=== PATIENT | male | born 1945 | race Hispanic/Latino ===

== ENCOUNTER → 2017-07-24 | Outpatient (CLI) | payer OTHER | END | disposition home or self-care (01) | LOC: OIH 08:05 | PROVIDERS: ATTEND Family Medicine | DX: M47.896 Other spondylosis, lumbar region (principal) | CPT/HCPCS: 72100 ==

== ENCOUNTER → 2019-04-15 | Outpatient (CLI) | payer OTHER | END | disposition home or self-care (01) | LOC: OIH 15:16 | PROVIDERS: ATTEND Family Medicine | DX: M19.011 Primary osteoarthritis, right shoulder (principal) | CPT/HCPCS: 73030 ==

== ENCOUNTER → 2019-09-29 | Outpatient (CLI) | payer OTHER | END | disposition home or self-care (01) | LOC: OIH 10:42 | PROVIDERS: ATTEND Family Medicine | DX: J44.9 Chronic obstructive pulmonary disease, unspecified (principal); M47.814 Spondylosis without myelopathy or radiculopathy, thoracic region; I70.0 Atherosclerosis of aorta | CPT/HCPCS: 71046 ==

== ENCOUNTER 2022-12-03 20:24 | Observation (INO) | payer OTHER ==
[~2022-12-03] VITALS: Ht 167.6 cm; Wt 100.2 kg
[2022-12-03] MEDS ORDERED: 0.9%NACL 1000ML 1,000 ML IV ONE (20:30)
[2022-12-03 20:43] LABS: BASOPHILS # (AUTO) 0.04 K/uL (0.00-0.20); BASOPHILS % (AUTO) 0.5 % (0.0-5.0); EOSINOPHILS # (AUTO) 0.11 K/uL (0.00-0.70); EOSINOPHILS % (AUTO) 1.4 % (0.0-8.0); HEMATOCRIT 36.3 % (42-54); LYMPHOCYTES # (AUTO) 1.7 K/uL (1.0-4.8); LYMPHOCYTES % (AUTO) 21.2 % (21.0-51.0); MEAN CORPUSCULAR HEMOGLOBIN 31.7 pg (27.0-33.0); MEAN CORPUSCULAR HGB CONC 35.5 g/dL (32.0-36.0); MEAN CORPUSCULAR VOLUME 89.2 fL (79-99); MONOCYTES # (AUTO) 0.7 K/uL (0.1-1.0); MONOCYTES % (AUTO) 8.4 % (3.0-13.0); NEUTROPHILS # (AUTO) 5.4 K/uL (1.8-7.7); NEUTROPHILS % (AUTO) 67.3 % (40.0-77.0); PLATELET COUNT (AUTO) 272 K/uL (130-400); RED BLOOD CELL COUNT(AUTO) 4.07 MIL/uL (4.50-6.20); RED CELL DISTRIBUTION WIDTH 12.5 % (11.0-15.5); WHITE BLOOD COUNT (AUTO) 8.1 K/uL (4.8-10.8)
[2022-12-03 20:51] LABS: APPEARANCE,URINE CLEAR (CLEAR); BILIRUBIN,URINE NEGATIVE (NEGATIVE); COLOR,URINE LIGHT-YELLOW (YELLOW); GLUCOSE, URINE (UA) NEGATIVE (NEGATIVE); KETONES,URINE NEGATIVE (NEGATIVE); LEUKOCYTE ESTERASE ,URINE NEGATIVE Leu/uL (NEGATIVE); NITRATE,URINE NEGATIVE (NEGATIVE); OCCULT BLOOD,URINE NEGATIVE (NEGATIVE); PROTEIN,URINE NEGATIVE (NEGATIVE); UROBILINOGEN,URINE 0.2 mg/dL (0.2-1.0)
[2022-12-03 20:53] LABS: CREATININE 1.4 mg/dL (0.5-1.5)
[2022-12-03 20:54] LABS: ADD UA MICROSCOPIC YES
[2022-12-03 20:55] LABS: BACTERIA,URINE RARE /HPF (None Seen); MUCUS,URINE RARE LPF (None Seen); SQUAMOUS EPITHELIAL CELL,UR RARE /HPF (0-2)
[2022-12-03 20:57] LABS: ALBUMIN 3.7 g/dL (3.5-5.0); BILIRUBIN,TOTAL 0.6 mg/dL (0.2-1.0); TOTAL PROTEIN, SERUM 7.2 g/dL (6.0-8.3)
[2022-12-03] MEDS ORDERED: OMEP40CA21 PO (22:27)
[2022-12-03] MEDS ORDERED: ONDA-104 PO (22:27)
[2022-12-03] MEDS ORDERED: IBUP-1493 PO (22:27)
[2022-12-03] MEDS ORDERED: LIDOCAINE 4% ADH..PATCH TP ONE ×2 (22:44→23:00)
[2022-12-04] MEDS ORDERED: CLONIDINE HCL 0.1 MG TABLET PO PRN (01:00)
[2022-12-04] MEDS ORDERED: LACTULOSE 20 GM/30 ML UDCUP PO PRN (01:00)
[2022-12-04] MEDS ORDERED: ACETAMINOPHEN 325 MG TAB PO PRN (01:00)
[2022-12-04] MEDS ORDERED: TEMAZEPAM 15 MG CAPSULE PO PRN (01:00)
[2022-12-04] MEDS ORDERED: LABETALOL 20MG SYG IV PRN (01:00)
[2022-12-04] MEDS ORDERED: HYDRALAZINE 20MG/ML VIAL IV PRN (01:00)
[2022-12-04] MEDS ORDERED: ONDANSETRON 4MG INJ IVP PRN (01:00)
[2022-12-04] MEDS: HYDROCODONE/ACETAMINOPHEN 5/325 MG TAB PO PRN ×2 (01:18→20:17)
[2022-12-04] MEDS: 0.9%NACL 1000ML 1,000 ML IV SCH ×2 (01:32→21:28)
[2022-12-04 06:32] LABS: HEMATOCRIT 35.4 % (42-54); MEAN CORPUSCULAR HEMOGLOBIN 32.2 pg (27.0-33.0); MEAN CORPUSCULAR VOLUME 91.9 fL (79-99); RED BLOOD CELL COUNT(AUTO) 3.85 MIL/uL (4.50-6.20); RED CELL DISTRIBUTION WIDTH 12.7 % (11.0-15.5); WHITE BLOOD COUNT (AUTO) 6.8 K/uL (4.8-10.8)
[2022-12-04 06:51] LABS: CREATININE 1.4 mg/dL (0.5-1.5); MAGNESIUM 1.8 mg/dL (1.80-2.40); PHOSPHORUS 3.7 mg/dL (2.5-4.9); POTASSIUM 4.1 mmol/L (3.5-5.1)
[2022-12-04] MEDS: INSULIN HUMULIN R 100 UNIT/ML 3ML SQ SCH ×4 (07:05→20:21)
[2022-12-04] MEDS: ENOXAPARIN SODIUM 30 MG/0.3 ML SQ SCH ×2 (09:06→20:18)
[2022-12-04] MEDS: FAMOTIDINE 20MG TAB PO SCH (09:06)
[2022-12-04 10:53] VITALS: O2SAT 100
[2022-12-04 11:45] VITALS: BP 141/81; PULSE 88; RESP 16
[2022-12-04 16:00] VITALS: BP 127/75; PULSE 84; RESP 16
[2022-12-04] MEDS ORDERED: HYDR25TA PO (16:18)
[2022-12-04] MEDS ORDERED: LISI20TA24 PO (16:18)
[2022-12-04] MEDS ORDERED: LEVO75 PO (16:18)
[2022-12-04] MEDS ORDERED: ATOR40TA71 PO (16:18)
[2022-12-04] MEDS ORDERED: RIVA20TA PO (16:18)
[2022-12-04] MEDS ORDERED: DILT120C43 PO (16:18)
[2022-12-04] MEDS ORDERED: HYDROCODONE/ACETAMINOPHEN 5/325 MG TAB PO PRN ×2 (16:30)
[2022-12-04] MEDS: GABAPENTIN 100 MG CAPSULE PO SCH ×2 (17:11→20:12)
[2022-12-04 19:00] VITALS: BP 137/83; PULSE 80; RESP 20
[2022-12-05] VITALS: BP 142/73; PULSE 84; RESP 20
[2022-12-05 04:00] VITALS: BP 132/69; PULSE 84; RESP 20
[2022-12-05] MEDS: INSULIN HUMULIN R 100 UNIT/ML 3ML SQ SCH ×2 (05:08→11:30)
[2022-12-05 05:16] LABS: BASOPHILS # (AUTO) 0.04 K/uL (0.00-0.20); BASOPHILS % (AUTO) 0.6 % (0.0-5.0); EOSINOPHILS # (AUTO) 0.11 K/uL (0.00-0.70); EOSINOPHILS % (AUTO) 1.6 % (0.0-8.0); HEMATOCRIT 37.2 % (42-54); IMMATURE GRANULOCYTE ABSOLUTE 0.07 K/uL (0-1); LYMPHOCYTES % (AUTO) 28.3 % (21.0-51.0); MEAN CORPUSCULAR HGB CONC 33.9 g/dL (32.0-36.0); MEAN CORPUSCULAR VOLUME 94.4 fL (79-99); MONOCYTES # (AUTO) 0.7 K/uL (0.1-1.0); MONOCYTES % (AUTO) 9.2 % (3.0-13.0); NEUTROPHILS # (AUTO) 4.2 K/uL (1.8-7.7); NEUTROPHILS % (AUTO) 59.3 % (40.0-77.0); PLATELET COUNT (AUTO) 243 K/uL (130-400); RED BLOOD CELL COUNT(AUTO) 3.94 MIL/uL (4.50-6.20); RED CELL DISTRIBUTION WIDTH 12.6 % (11.0-15.5); WHITE BLOOD COUNT (AUTO) 7.1 K/uL (4.8-10.8)
[2022-12-05] MEDS: HYDROCODONE/ACETAMINOPHEN 5/325 MG TAB PO PRN (05:43)
[2022-12-05 05:58] LABS: CREATININE 1.2 mg/dL (0.5-1.5); POTASSIUM 3.9 mmol/L (3.5-5.1); THYROID STIMULATING HORMONE 3.4 uIU/mL (0.36-3.74)
[2022-12-05] MEDS ORDERED: LEVOTHYROXINE 75 MCG TABLET PO SCH (06:30)
[2022-12-05 08:00] VITALS: BP 120/79; PULSE 89; RESP 18
[2022-12-05] MEDS: FAMOTIDINE 20MG TAB PO SCH (08:53)
[2022-12-05] MEDS: ENOXAPARIN SODIUM 30 MG/0.3 ML SQ SCH ×2 (08:54)
[2022-12-05] MEDS: GABAPENTIN 100 MG CAPSULE PO SCH ×2 (08:56→14:24)
[2022-12-05] MEDS ORDERED: NON-FORMULARY MEDICATION 1 EACH (Omeprazole 40 MG) PO SCH (09:00)
[2022-12-05] MEDS ORDERED: ATORVASTATIN 40 MG TABLET PO SCH (09:00)
[2022-12-05] MEDS ORDERED: DILTIAZEM HCL PO SCH (09:00)
[2022-12-05] MEDS ORDERED: LISINOPRIL 20 MG TABLET PO SCH (09:00)
[2022-12-05] MEDS ORDERED: PANTOPRAZOLE 40 MG TAB DR PO SCH (09:00)
[2022-12-05 11:44] VITALS: BP 147/81; PULSE 84; RESP 18
[2022-12-05] MEDS ORDERED: GABA100C PO (14:21)
[2022-12-05] MEDS ORDERED: PANT40TA PO (14:21)
[2022-12-05] MEDS ORDERED: FAMO20TA8 PO (14:21)
[2022-12-05 16:00] VITALS: BP 132/76
== END 2022-12-05 16:40 | disposition home or self-care (01) ==
LOC: EDH 20:24 → EDHIP 12-04 00:31 → 4CH 12-04 11:45
PROVIDERS: ADMIT Internal Medicine; ATTEND Internal Medicine
DX: R10.32 Left lower quadrant pain (principal); E87.1 Hypo-osmolality and hyponatremia; M16.0 Bilateral primary osteoarthritis of hip; E78.5 Hyperlipidemia, unspecified; I10 Essential (primary) hypertension; M48.54XA Collapsed vertebra, not elsewhere classified, thoracic region, initial encounter for fracture; I48.91 Unspecified atrial fibrillation; J98.11 Atelectasis; I35.1 Nonrheumatic aortic (valve) insufficiency; K80.20 Calculus of gallbladder without cholecystitis without obstruction; I25.10 Atherosclerotic heart disease of native coronary artery without angina pectoris; I48.20 Chronic atrial fibrillation, unspecified; M43.26 Fusion of spine, lumbar region; E66.9 Obesity, unspecified; M85.80 Other specified disorders of bone density and structure, unspecified site; Z68.35 Body mass index [BMI] 35.0-35.9, adult; Z98.1 Arthrodesis status; Z79.01 Long term (current) use of anticoagulants; Z95.5 Presence of coronary angioplasty implant and graft; Z96.652 Presence of left artificial knee joint
CPT/HCPCS: 96360; 96361 ×3; 99285; 82150; 80053; 83880; 83690 ×2; 85025 ×2; 81001; 36415 ×3; 74176; 93005; 96372 ×2; 82550 ×3; 83735; 84100; 83874 ×3; 84484 ×3; 80048 ×2; 85027; 87088; 82948 ×7; 72128; 84145; 84443; 72148; 72146; 97161; 97116; G0378 ×39; J1650 ×3

== ENCOUNTER 2022-12-11 22:28 | Inpatient (IN) | payer OTHER ==
[~2022-12-11] VITALS: Ht 167.6 cm; Wt 101.2 kg
[~2022-12-11 22:28] MED LIST: ATOR40TA71 PO; DILT120C43 PO; FAMO20TA8 PO; GABA100C PO; HYDR25TA PO; IBUP-1493 PO; LEVO75 PO; LISI20TA24 PO; OMEP40CA21 PO; ONDA-104 PO; PANT40TA PO; RIVA20TA PO
[2022-12-11] MEDS ORDERED: LACTATED RINGERS 1000ML 1,000 ML IV ONE (23:00)
[2022-12-11] MEDS ORDERED: ONDANSETRON 4MG INJ IVP ONE (23:00)
[2022-12-11] MEDS ORDERED: MORPHINE 2 MG SYG IVP ONE (23:00)
[2022-12-11] MEDS ORDERED: HALOPERIDOL INJ 5 MG/ML VIAL ONE (23:43)
[2022-12-11] MEDS ORDERED: HALOPERIDOL INJ 5 MG/ML VIAL IV STA (23:44)
[2022-12-12] MEDS ORDERED: HYDROMORPHONE 0.5 MG SYG (0.5MG/0.5ML) IVP ONE (00:30)
[2022-12-12 00:42] LABS: BASOPHILS # (AUTO) 0.03 K/uL (0.00-0.20); BASOPHILS % (AUTO) 0.3 % (0.0-5.0); EOSINOPHILS # (AUTO) 0.04 K/uL (0.00-0.70); EOSINOPHILS % (AUTO) 0.4 % (0.0-8.0); HEMATOCRIT 33.6 % (42-54); IMMATURE GRANULOCYTE ABSOLUTE 0.05 K/uL (0-1); LYMPHOCYTES # (AUTO) 1.2 K/uL (1.0-4.8); LYMPHOCYTES % (AUTO) 13.5 % (21.0-51.0); MEAN CORPUSCULAR HEMOGLOBIN 31.9 pg (27.0-33.0); MEAN CORPUSCULAR HGB CONC 34.2 g/dL (32.0-36.0); MEAN CORPUSCULAR VOLUME 93.1 fL (79-99); MONOCYTES # (AUTO) 0.8 K/uL (0.1-1.0); MONOCYTES % (AUTO) 8.7 % (3.0-13.0); NEUTROPHILS % (AUTO) 76.6 % (40.0-77.0); PLATELET COUNT (AUTO) 232 K/uL (130-400); RED BLOOD CELL COUNT(AUTO) 3.61 MIL/uL (4.50-6.20); RED CELL DISTRIBUTION WIDTH 12.4 % (11.0-15.5); WHITE BLOOD COUNT (AUTO) 9.1 K/uL (4.8-10.8)
[2022-12-12 00:50] LABS: CREATININE 1.3 mg/dL (0.5-1.5); POTASSIUM 3.5 mmol/L (3.5-5.1)
[2022-12-12 00:59] LABS: ALBUMIN 3.3 g/dL (3.5-5.0); BILIRUBIN,TOTAL 0.4 mg/dL (0.2-1.0); TOTAL PROTEIN, SERUM 6.8 g/dL (6.0-8.3)
[2022-12-12] MEDS ORDERED: HYDROMORPHONE 1 MG INJ IVP PRN (01:30)
[2022-12-12] MEDS ORDERED: ONDANSETRON 4MG INJ IVP PRN ×2 (01:30→17:00)
[2022-12-12] MEDS ORDERED: HYDRALAZINE 20MG/ML VIAL IV PRN (01:30)
[2022-12-12] MEDS: 0.9%NACL 1000ML 1,000 ML IV SCH ×3 (02:54→18:18)
[2022-12-12] MEDS ORDERED: KETOROLAC 30MG VIAL (30MG/ML) IM PRN (03:00)
[2022-12-12 04:20] VITALS: BP 131/75; PULSE 94; RESP 19
[2022-12-12 04:21] LABS: APPEARANCE,URINE CLEAR (CLEAR); BILIRUBIN,URINE NEGATIVE (NEGATIVE); COLOR,URINE LIGHT-YELLOW (YELLOW); GLUCOSE, URINE (UA) NEGATIVE (NEGATIVE); KETONES,URINE NEGATIVE (NEGATIVE); LEUKOCYTE ESTERASE ,URINE NEGATIVE Leu/uL (NEGATIVE); NITRATE,URINE NEGATIVE (NEGATIVE); OCCULT BLOOD,URINE NEGATIVE (NEGATIVE); PROTEIN,URINE NEGATIVE (NEGATIVE); UROBILINOGEN,URINE 0.2 mg/dL (0.2-1.0)
[2022-12-12 04:22] LABS: ADD UA MICROSCOPIC NO
[2022-12-12] MEDS: ZOSYN 3.375GM +NS 50ML IV SCH ×4 (05:21→23:37)
[2022-12-12] MEDS: INSULIN HUMULIN R 100 UNIT/ML 3ML SQ SCH ×4 (06:00→23:38)
[2022-12-12 06:44] LABS: CREATININE 1.3 mg/dL (0.5-1.5); MAGNESIUM 1.5 mg/dL (1.80-2.40); PHOSPHORUS 4.1 mg/dL (2.5-4.9); POTASSIUM 4.6 mmol/L (3.5-5.1)
[2022-12-12 06:47] LABS: HEMATOCRIT 35.9 % (42-54); MEAN CORPUSCULAR HEMOGLOBIN 31.9 pg (27.0-33.0); MEAN CORPUSCULAR HGB CONC 33.7 g/dL (32.0-36.0); MEAN CORPUSCULAR VOLUME 94.7 fL (79-99); RED BLOOD CELL COUNT(AUTO) 3.79 MIL/uL (4.50-6.20); RED CELL DISTRIBUTION WIDTH 12.5 % (11.0-15.5); WHITE BLOOD COUNT (AUTO) 12.8 K/uL (4.8-10.8)
[2022-12-12 08:00] VITALS: BP 118/59; PULSE 100; RESP 18
[2022-12-12] MEDS: ENOXAPARIN SODIUM 30 MG/0.3 ML SQ SCH (09:00)
[2022-12-12] MEDS ORDERED: KETOROLAC 30MG VIAL (30MG/ML) IV PRN (09:00)
[2022-12-12] MEDS ORDERED: MAGNESIUM 2GM PREMIX 50ML 50 ML IV PRN (09:30)
[2022-12-12] MEDS ORDERED: POTASSIUM CHLORIDE 20MEQ/100ML 100 ML IV PRN (09:30)
[2022-12-12 09:50] LABS: AMYLASE 75 U/L (25-115); CHOLESTEROL 141 mg/dL (<200); HDL CHOLESTEROL 42 mg/dL (29-71); LDL DIRECT 78 mg/dL (0-99); TRIGLYCERIDES 62 mg/dL (30-200)
[2022-12-12] MEDS: PANTOPRAZOLE 40 MG/VIAL IVP SCH (10:14)
[2022-12-12 16:00] VITALS: BP 139/72; PULSE 99; RESP 19
[2022-12-12] MEDS ORDERED: DIATR MEGLU/DIATRIZOATE SODIUM 30 ML BOTTLE ONE (17:17)
[2022-12-12 19:00] VITALS: BP 132/72; PULSE 112; RESP 18
[2022-12-12] MEDS ORDERED: IOHEXOL 350 MG/ML 100ML INFUS..BTL IV ONE (19:23)
[2022-12-12 20:05] VITALS: O2SAT 96
[2022-12-12] MEDS: HYDROMORPHONE 1 MG INJ IVP PRN (20:08)
[2022-12-12] MEDS: MAGNESIUM 2GM PREMIX 50ML 50 ML IV SCH (21:29)
[2022-12-13] VITALS (8 sets, daily range): BP systolic 100–138; BP diastolic 56–89; PULSE 56–130; RESP 12–20; O2SAT 95–97
[2022-12-13] MEDS: 0.9%NACL 1000ML 1,000 ML IV SCH ×3 (02:16→20:37)
[2022-12-13 03:57] LABS: HEMATOCRIT 34.9 % (42-54); MEAN CORPUSCULAR HEMOGLOBIN 31.1 pg (27.0-33.0); MEAN CORPUSCULAR VOLUME 94.3 fL (79-99); RED BLOOD CELL COUNT(AUTO) 3.7 MIL/uL (4.50-6.20); RED CELL DISTRIBUTION WIDTH 12.5 % (11.0-15.5); WHITE BLOOD COUNT (AUTO) 13.4 K/uL (4.8-10.8)
[2022-12-13 04:08] LABS: INR 1.03 (0.85-1.15); PROTHROMBIN TIME 11.9 SEC (9.6-11.6)
[2022-12-13 04:10] LABS: CREATININE 1.4 mg/dL (0.5-1.5); POTASSIUM 4.2 mmol/L (3.5-5.1)
[2022-12-13] MEDS: ZOSYN 3.375GM +NS 50ML IV SCH ×3 (05:41→18:33)
[2022-12-13] MEDS: INSULIN HUMULIN R 100 UNIT/ML 3ML SQ SCH ×3 (05:41→18:00)
[2022-12-13] MEDS: HYDROMORPHONE 1 MG INJ IVP PRN ×3 (05:42→20:47)
[2022-12-13] MEDS: ENOXAPARIN SODIUM 30 MG/0.3 ML SQ SCH (09:00)
[2022-12-13] MEDS: PANTOPRAZOLE 40 MG/VIAL IVP SCH (09:53)
[2022-12-13 11:19] LABS: SARS-CoV-2, RNA, NAAT POSITIVE SARS CoV-2 (NEGATIVE)
[2022-12-13 11:22] LABS: INFLUENZA TYPE A Negative For Type A (NEGATIVE); INFLUENZA TYPE B Negative For Type B (NEGATIVE)
[2022-12-13] MEDS ORDERED: METOPROLOL TARTRATE 1 MG/ML 5ML VIAL IV ONE (17:30)
[2022-12-13] MEDS: DILTIAZEM 120MG SR CAP PO SCH (18:33)
[2022-12-13] MEDS: GABAPENTIN 100 MG CAPSULE PO SCH (20:37)
[2022-12-14] VITALS (28 sets, daily range): BP systolic 112–143; BP diastolic 55–84; PULSE 74–108; RESP 17–22; O2SAT 98
[2022-12-14] MEDS: ZOSYN 3.375GM +NS 50ML IV SCH ×5 (00:12→23:50)
[2022-12-14] MEDS: 0.9%NACL 1000ML 1,000 ML IV SCH ×4 (01:30→23:51)
[2022-12-14] MEDS: ENOXAPARIN SODIUM 30 MG/0.3 ML SQ SCH (03:06)
[2022-12-14 04:44] LABS: HEMATOCRIT 29.3 % (42-54); MEAN CORPUSCULAR HGB CONC 33.8 g/dL (32.0-36.0); MEAN CORPUSCULAR VOLUME 94.8 fL (79-99); RED BLOOD CELL COUNT(AUTO) 3.09 MIL/uL (4.50-6.20); RED CELL DISTRIBUTION WIDTH 12.6 % (11.0-15.5); WHITE BLOOD COUNT (AUTO) 10.4 K/uL (4.8-10.8)
[2022-12-14 05:02] LABS: INR 0.94 (0.85-1.15)
[2022-12-14 05:23] LABS: ALBUMIN 2.3 g/dL (3.5-5.0); BILIRUBIN,TOTAL 0.9 mg/dL (0.2-1.0); CREATININE 1.2 mg/dL (0.5-1.5); MAGNESIUM 1.8 mg/dL (1.80-2.40); POTASSIUM 3.6 mmol/L (3.5-5.1); TOTAL PROTEIN, SERUM 5.8 g/dL (6.0-8.3)
[2022-12-14] MEDS: INSULIN HUMULIN R 100 UNIT/ML 3ML SQ SCH ×4 (05:29→18:00)
[2022-12-14] MEDS: MAGNESIUM 2GM PREMIX 50ML 50 ML IV SCH (05:32)
[2022-12-14] MEDS: GABAPENTIN 100 MG CAPSULE PO SCH ×3 (09:00→20:48)
[2022-12-14] MEDS ORDERED: DILTIAZEM HCL PO SCH (09:00)
[2022-12-14] MEDS: LEVOTHYROXINE 75 MCG TABLET PO SCH (09:00)
[2022-12-14] MEDS ORDERED: BUPIVACAINE/PF 0.25% 30ML VIAL IJ ONE (09:47)
[2022-12-14] MEDS ORDERED: LIDOCAINE 1%-EPI 1:100,000 20 ML VIAL IJ ONE (09:47)
[2022-12-14] MEDS ORDERED: 0.9%NACL 1000ML 1,000 ML IV ONE (09:56)
[2022-12-14] MEDS ORDERED: GLYCOPYRROLATE 1 MG/5 ML SYRINGE ONE (10:31)
[2022-12-14] MEDS ORDERED: SUCCINYLCHOLINE 200MG/10ML SYR ONE (10:31)
[2022-12-14] MEDS ORDERED: LIDOCAINE PF 100MG/5ML (2%) SYRINGE 5ML ONE (10:31)
[2022-12-14] MEDS ORDERED: ROCURONIUM 10MG/1ML SYR 10 MG/ML ML ONE (10:32)
[2022-12-14] MEDS ORDERED: PROPOFOL 10 MG/ML 20ML VIAL IV ONE (10:32)
[2022-12-14] MEDS ORDERED: FENTANYL CITRATE PF 50 MCG/1 ML 2ML VIAL ONE ×3 (10:32→12:28)
[2022-12-14] MEDS ORDERED: SUCCINYLCHOLINE CHLORIDE 20 MG/ML 10 ML VIAL ONE (10:36)
[2022-12-14] MEDS ORDERED: MIDAZOLAM HCL 1 MG/ML 2ML VIAL ONE (10:40)
[2022-12-14] MEDS ORDERED: CEFAZOLIN SODIUM 1 GM VIAL ONE (10:51)
[2022-12-14] MEDS ORDERED: SUGAMMADEX SODIUM 200 MG/2 ML VIAL IV ONE (11:37)
[2022-12-14] MEDS ORDERED: ONDANSETRON 4MG INJ ONE (12:07)
[2022-12-14] MEDS: LISINOPRIL 20 MG TABLET PO SCH (13:50)
[2022-12-14] MEDS: ATORVASTATIN 40 MG TABLET PO SCH (13:50)
[2022-12-14] MEDS: PANTOPRAZOLE 40 MG/VIAL IVP SCH (13:50)
[2022-12-14] MEDS: DILTIAZEM 120MG SR CAP PO SCH ×2 (13:50→17:42)
[2022-12-14] MEDS: HYDROMORPHONE 1 MG INJ IVP PRN (13:52)
[2022-12-14 14:24] LABS: HEMATOCRIT 31.7 % (42-54); MEAN CORPUSCULAR HEMOGLOBIN 31.5 pg (27.0-33.0); MEAN CORPUSCULAR HGB CONC 32.2 g/dL (32.0-36.0); MEAN CORPUSCULAR VOLUME 97.8 fL (79-99); RED BLOOD CELL COUNT(AUTO) 3.24 MIL/uL (4.50-6.20); RED CELL DISTRIBUTION WIDTH 12.6 % (11.0-15.5); WHITE BLOOD COUNT (AUTO) 13.3 K/uL (4.8-10.8)
[2022-12-14] MEDS: OXYCODONE/ACETAMIN 5/325MG TAB PO PRN ×2 (18:14→23:11)
[2022-12-14] MEDS ORDERED: METOPROLOL TARTRATE 1 MG/ML 5ML VIAL IV ONE (18:30)
[2022-12-15] VITALS (7 sets, daily range): BP systolic 94–122; BP diastolic 44–60; PULSE 63–97; RESP 16–19; O2SAT 90–95
[2022-12-15] MEDS: HYDROMORPHONE 1 MG INJ IVP PRN (02:02)
[2022-12-15 04:40] LABS: HEMATOCRIT 28.2 % (42-54); MEAN CORPUSCULAR HEMOGLOBIN 31.4 pg (27.0-33.0); MEAN CORPUSCULAR HGB CONC 31.9 g/dL (32.0-36.0); MEAN CORPUSCULAR VOLUME 98.3 fL (79-99); RED BLOOD CELL COUNT(AUTO) 2.87 MIL/uL (4.50-6.20); RED CELL DISTRIBUTION WIDTH 12.5 % (11.0-15.5); WHITE BLOOD COUNT (AUTO) 14.1 K/uL (4.8-10.8)
[2022-12-15 05:03] LABS: ALBUMIN 2.2 g/dL (3.5-5.0); BILIRUBIN,TOTAL 0.9 mg/dL (0.2-1.0); CREATININE 2.4 mg/dL (0.5-1.5); MAGNESIUM 2.3 mg/dL (1.80-2.40); POTASSIUM 4.7 mmol/L (3.5-5.1)
[2022-12-15] MEDS: ZOSYN 3.375GM +NS 50ML IV SCH ×3 (05:42→18:28)
[2022-12-15] MEDS: INSULIN HUMULIN R 100 UNIT/ML 3ML SQ SCH ×4 (05:43→18:00)
[2022-12-15] MEDS: LISINOPRIL 20 MG TABLET PO SCH (09:00)
[2022-12-15] MEDS: GABAPENTIN 100 MG CAPSULE PO SCH ×3 (09:26→21:35)
[2022-12-15] MEDS: PANTOPRAZOLE 40 MG/VIAL IVP SCH (09:26)
[2022-12-15] MEDS: ENOXAPARIN SODIUM 30 MG/0.3 ML SQ SCH (09:27)
[2022-12-15] MEDS: ATORVASTATIN 40 MG TABLET PO SCH (09:27)
[2022-12-15] MEDS: DILTIAZEM 120MG SR CAP PO SCH ×2 (09:27→18:00)
[2022-12-15] MEDS: LEVOTHYROXINE 75 MCG TABLET PO SCH (09:27)
[2022-12-15] MEDS: 0.9%NACL 1000ML 1,000 ML IV SCH ×2 (09:45→17:30)
[2022-12-15] MEDS ORDERED: HYDROMORPHONE 1 MG INJ IVP PRN (14:30)
[2022-12-16] VITALS (44 sets, daily range): BP systolic 94–134; BP diastolic 54–87; PULSE 84–126; RESP 18–28; O2SAT 88–97
[2022-12-16] MEDS ORDERED: DILTIAZEM 25MG INJ IVP PRN (01:00)
[2022-12-16 01:15] LABS: HEMATOCRIT 23.8 % (42-54); MEAN CORPUSCULAR HEMOGLOBIN 31.9 pg (27.0-33.0); MEAN CORPUSCULAR HGB CONC 33.2 g/dL (32.0-36.0); RED BLOOD CELL COUNT(AUTO) 2.48 MIL/uL (4.50-6.20); RED CELL DISTRIBUTION WIDTH 12.7 % (11.0-15.5); WHITE BLOOD COUNT (AUTO) 13.1 K/uL (4.8-10.8)
[2022-12-16 01:26] LABS: CREATININE 3.7 mg/dL (0.5-1.5)
[2022-12-16] MEDS: 0.9%NACL 1000ML 1,000 ML IV SCH (01:30)
[2022-12-16 01:31] LABS: ALBUMIN 2.2 g/dL (3.5-5.0); BILIRUBIN,TOTAL 0.5 mg/dL (0.2-1.0); TOTAL PROTEIN, SERUM 6.1 g/dL (6.0-8.3)
[2022-12-16 02:16] LABS: ABG BASE EXCESS -7.6 mmol/L (-2.0-3.0); ABG HCO3 17.5 mmol/L (21.0-28.0); ABG OXYGEN SATURATION 87.7 % (95.0-99.0); ABG PCO2 34 mmHg (35-48); CARBON MONOXIDE 0.3; HHb 12.2; PO2, ARTERIAL BG 61.8 mmHg (83.0-108.0)
[2022-12-16] MEDS: ZOSYN 3.375GM +NS 50ML IV SCH ×3 (02:27→11:42)
[2022-12-16] MEDS: DILTIAZEM 125 MG/25 ML INJ 125 MG in 0.9%NACL 100ML 100 ML IV PRN ×2 (02:37→20:19)
[2022-12-16 04:59] LABS: HEMATOCRIT 21.6 % (42-54); MEAN CORPUSCULAR HEMOGLOBIN 31.5 pg (27.0-33.0); MEAN CORPUSCULAR HGB CONC 31.9 g/dL (32.0-36.0); MEAN CORPUSCULAR VOLUME 98.6 fL (79-99); RED BLOOD CELL COUNT(AUTO) 2.19 MIL/uL (4.50-6.20); RED CELL DISTRIBUTION WIDTH 12.7 % (11.0-15.5); WHITE BLOOD COUNT (AUTO) 12.7 K/uL (4.8-10.8)
[2022-12-16 05:20] LABS: ALBUMIN 2.2 g/dL (3.5-5.0); BILIRUBIN,TOTAL 0.5 mg/dL (0.2-1.0); CREATININE 3.6 mg/dL (0.5-1.5); MAGNESIUM 2.3 mg/dL (1.80-2.40); TOTAL PROTEIN, SERUM 6.1 g/dL (6.0-8.3)
[2022-12-16] MEDS: INSULIN HUMULIN R 100 UNIT/ML 3ML SQ SCH ×4 (06:00→16:23)
[2022-12-16] MEDS ORDERED: SODIUM BICARB 50MEQ 50ML VIAL IV ONE (06:00)
[2022-12-16 07:59] LABS: HEMATOCRIT 21.3 % (42-54)
[2022-12-16 08:14] LABS: ABG HCO3 22.5 mmol/L (21.0-28.0); ABG OXYGEN SATURATION 95.7 % (95.0-99.0); ABG PCO2 38 mmHg (35-48); ABG PH 7.392 (7.35-7.450); PO2, ARTERIAL BG 79.6 mmHg (83.0-108.0); VENT MODE, BG BIPAP 12 5 (ROOM AIR)
[2022-12-16] MEDS: PANTOPRAZOLE 40 MG/VIAL IVP SCH (08:49)
[2022-12-16] MEDS: ENOXAPARIN SODIUM 30 MG/0.3 ML SQ SCH (09:00)
[2022-12-16] MEDS: ATORVASTATIN 40 MG TABLET PO SCH (10:51)
[2022-12-16] MEDS: DILTIAZEM 120MG SR CAP PO SCH (10:51)
[2022-12-16] MEDS: GABAPENTIN 100 MG CAPSULE PO SCH ×3 (10:52→21:37)
[2022-12-16] MEDS: LEVOTHYROXINE 75 MCG TABLET PO SCH (10:52)
[2022-12-16] MEDS ORDERED: FUROSEMIDE 20MG VIAL IV STA (12:25)
[2022-12-16] MEDS ORDERED: IPRATROPIUM 0.5 MG/2.5 ML INH IH PRN (16:00)
[2022-12-16] MEDS: DEXAMETHASONE SOD PHOSPHATE 4 MG/ML 1ML VIAL IV SCH (17:30)
[2022-12-16] MEDS: CEFTRIAXONE 2GM VIAL IVPB SCH (17:30)
[2022-12-16] MEDS: OXYCODONE/ACETAMIN 5/325MG TAB PO PRN (17:41)
[2022-12-16] MEDS: METOCLOPRAMIDE 10 MG/2 ML VIAL IVP SCH (17:42)
[2022-12-16 18:15] LABS: INR < 0.93 (0.85-1.15); PROTHROMBIN TIME 10.3 SEC (9.6-11.6)
[2022-12-16 18:17] LABS: PARTIAL THROMBOPLASTIN TIME 28.6 SEC (26.3-35.5)
[2022-12-17] VITALS (11 sets, daily range): BP systolic 115–147; BP diastolic 56–78; PULSE 84–102; RESP 17–24; O2SAT 93–98
[2022-12-17] MEDS: 0.9%NACL 1000ML 1,000 ML IV SCH (02:58)
[2022-12-17 04:44] LABS: HEMATOCRIT 25.1 % (42-54); MEAN CORPUSCULAR HGB CONC 32.3 g/dL (32.0-36.0); MEAN CORPUSCULAR VOLUME 96.2 fL (79-99); RED BLOOD CELL COUNT(AUTO) 2.61 MIL/uL (4.50-6.20); RED CELL DISTRIBUTION WIDTH 13.7 % (11.0-15.5); WHITE BLOOD COUNT (AUTO) 13.4 K/uL (4.8-10.8)
[2022-12-17 04:52] LABS: CREATININE 3.2 mg/dL (0.5-1.5); MAGNESIUM 2.5 mg/dL (1.80-2.40); POTASSIUM 4.1 mmol/L (3.5-5.1)
[2022-12-17] MEDS: INSULIN HUMULIN R 100 UNIT/ML 3ML SQ SCH ×5 (05:46→20:55)
[2022-12-17] MEDS: LEVOTHYROXINE 75 MCG TABLET PO SCH (06:33)
[2022-12-17] MEDS: METOCLOPRAMIDE 10 MG/2 ML VIAL IVP SCH ×3 (06:34→16:16)
[2022-12-17 09:27] LABS: ABG BASE EXCESS -6.3 mmol/L (-2.0-3.0); ABG HCO3 17.9 mmol/L (21.0-28.0); ABG OXYGEN SATURATION 89.5 % (95.0-99.0); ABG PCO2 32 mmHg (35-48); ABG PH 7.364 (7.35-7.450); PO2, ARTERIAL BG 57.8 mmHg (83.0-108.0); VENT MODE, BG NC (ROOM AIR)
[2022-12-17] MEDS ORDERED: SODIUM BICARB 50MEQ 50ML VIAL IV ONE (10:00)
[2022-12-17] MEDS: PANTOPRAZOLE 40 MG/VIAL IVP SCH (10:00)
[2022-12-17] MEDS: ATORVASTATIN 40 MG TABLET PO SCH (10:01)
[2022-12-17] MEDS: DILTIAZEM 120MG SR CAP PO SCH (10:01)
[2022-12-17] MEDS: GABAPENTIN 100 MG CAPSULE PO SCH ×3 (10:01→21:04)
[2022-12-17] MEDS: ENOXAPARIN SODIUM 30 MG/0.3 ML SQ SCH (10:02)
[2022-12-17] MEDS: CEFTRIAXONE 2GM VIAL IVPB SCH (13:53)
[2022-12-17] MEDS: DEXAMETHASONE SOD PHOSPHATE 4 MG/ML 1ML VIAL IV SCH (13:53)
[2022-12-17] MEDS: METRONIDAZOLE 500MG/100ML BAG 100 ML IVPB SCH ×2 (13:54→21:04)
[2022-12-17] MEDS: DILTIAZEM 125 MG/25 ML INJ 125 MG in 0.9%NACL 100ML 100 ML IV PRN (20:56)
[2022-12-17] MEDS: OXYCODONE/ACETAMIN 5/325MG TAB PO PRN (22:22)
[2022-12-18] VITALS (13 sets, daily range): BP systolic 104–130; BP diastolic 59–72; PULSE 71–88; RESP 18–22; O2SAT 94–98
[2022-12-18 04:09] LABS: HEMATOCRIT 22.4 % (42-54); MEAN CORPUSCULAR HGB CONC 32.1 g/dL (32.0-36.0); MEAN CORPUSCULAR VOLUME 96.6 fL (79-99); NUCLEATED RED BLOOD CELLS 0.2 % (0.0-0.19); RED BLOOD CELL COUNT(AUTO) 2.32 MIL/uL (4.50-6.20); RED CELL DISTRIBUTION WIDTH 13.8 % (11.0-15.5); WHITE BLOOD COUNT (AUTO) 11.7 K/uL (4.8-10.8)
[2022-12-18 04:29] LABS: ALBUMIN 2.1 g/dL (3.5-5.0); BILIRUBIN,TOTAL 0.3 mg/dL (0.2-1.0); CREATININE 2.2 mg/dL (0.5-1.5); MAGNESIUM 2.4 mg/dL (1.80-2.40); POTASSIUM 3.7 mmol/L (3.5-5.1); TOTAL PROTEIN, SERUM 5.9 g/dL (6.0-8.3)
[2022-12-18] MEDS: INSULIN HUMULIN R 100 UNIT/ML 3ML SQ SCH ×3 (05:43→18:18)
[2022-12-18] MEDS: METRONIDAZOLE 500MG/100ML BAG 100 ML IVPB SCH ×3 (05:47→20:30)
[2022-12-18] MEDS: LEVOTHYROXINE 75 MCG TABLET PO SCH (05:47)
[2022-12-18] MEDS: METOCLOPRAMIDE 10 MG/2 ML VIAL IVP SCH ×3 (05:47→17:09)
[2022-12-18] MEDS: PANTOPRAZOLE 40 MG/VIAL IVP SCH (07:50)
[2022-12-18] MEDS: ATORVASTATIN 40 MG TABLET PO SCH (07:51)
[2022-12-18] MEDS: GABAPENTIN 100 MG CAPSULE PO SCH ×2 (07:51→20:31)
[2022-12-18] MEDS: DILTIAZEM 120MG SR CAP PO SCH (07:51)
[2022-12-18] MEDS: FLUCONAZOLE 100 MG TAB PO SCH (11:06)
[2022-12-18] MEDS: FUROSEMIDE 40MG VIAL IV SCH ×2 (11:23→18:19)
[2022-12-18] MEDS: IPRATROPIUM 0.5 MG/2.5 ML INH IH SCH ×3 (12:20→23:33)
[2022-12-18 13:14] LABS: APPEARANCE,URINE CLEAR (CLEAR); BILIRUBIN,URINE NEGATIVE (NEGATIVE); COLOR,URINE COLORLESS (YELLOW); GLUCOSE, URINE (UA) NEGATIVE (NEGATIVE); KETONES,URINE NEGATIVE (NEGATIVE); LEUKOCYTE ESTERASE ,URINE NEGATIVE Leu/uL (NEGATIVE); NITRATE,URINE NEGATIVE (NEGATIVE); PH,URINE 6.5 (5.0-8.0); PROTEIN,URINE NEGATIVE (NEGATIVE); UROBILINOGEN,URINE 0.2 mg/dL (0.2-1.0)
[2022-12-18 13:21] LABS: SQUAMOUS EPITHELIAL CELL,UR RARE /HPF (0-2); UNCLASSIFIED CRYSTAL 1 /HPF (None Seen)
[2022-12-18] MEDS: DEXAMETHASONE SOD PHOSPHATE 4 MG/ML 1ML VIAL IV SCH (13:34)
[2022-12-18] MEDS: CEFTRIAXONE 2GM VIAL IVPB SCH (13:34)
[2022-12-18] MEDS: OXYCODONE/ACETAMIN 5/325MG TAB PO PRN ×2 (13:41→20:32)
[2022-12-19] VITALS (14 sets, daily range): BP systolic 117–138; BP diastolic 67–89; PULSE 67–92; RESP 18–23; O2SAT 94–97
[2022-12-19] MEDS: INSULIN HUMULIN R 100 UNIT/ML 3ML SQ SCH ×5 (00:23→21:24)
[2022-12-19] MEDS: FUROSEMIDE 40MG VIAL IV SCH ×3 (03:19→20:49)
[2022-12-19 04:09] LABS: BASOPHILS # (AUTO) 0.02 K/uL (0.00-0.20); BASOPHILS % (AUTO) 0.2 % (0.0-5.0); HEMATOCRIT 25.5 % (42-54); IMMATURE GRANULOCYTE ABSOLUTE 0.17 K/uL (0-1); LYMPHOCYTES # (AUTO) 0.5 K/uL (1.0-4.8); LYMPHOCYTES % (AUTO) 4.3 % (21.0-51.0); MEAN CORPUSCULAR HEMOGLOBIN 31.2 pg (27.0-33.0); MEAN CORPUSCULAR HGB CONC 32.2 g/dL (32.0-36.0); MONOCYTES # (AUTO) 0.8 K/uL (0.1-1.0); NEUTROPHILS # (AUTO) 10.4 K/uL (1.8-7.7); NEUTROPHILS % (AUTO) 87.1 % (40.0-77.0); NUCLEATED RED BLOOD CELLS 0.2 % (0.0-0.19); PLATELET COUNT (AUTO) 364 K/uL (130-400); RED BLOOD CELL COUNT(AUTO) 2.63 MIL/uL (4.50-6.20); RED CELL DISTRIBUTION WIDTH 13.5 % (11.0-15.5)
[2022-12-19 04:15] LABS: CREATININE 1.8 mg/dL (0.5-1.5); POTASSIUM 3.7 mmol/L (3.5-5.1)
[2022-12-19] MEDS: LEVOTHYROXINE 75 MCG TABLET PO SCH (06:38)
[2022-12-19] MEDS: METRONIDAZOLE 500MG/100ML BAG 100 ML IVPB SCH ×3 (06:38→21:41)
[2022-12-19] MEDS: METOCLOPRAMIDE 10 MG/2 ML VIAL IVP SCH ×3 (06:38→17:13)
[2022-12-19] MEDS: IPRATROPIUM 0.5 MG/2.5 ML INH IH SCH ×4 (07:12→23:13)
[2022-12-19] MEDS: PANTOPRAZOLE 40 MG/VIAL IVP SCH (09:14)
[2022-12-19] MEDS: DILTIAZEM 120MG SR CAP PO SCH (09:15)
[2022-12-19] MEDS: FLUCONAZOLE 100 MG TAB PO SCH (09:15)
[2022-12-19] MEDS: GABAPENTIN 100 MG CAPSULE PO SCH ×2 (09:15→20:49)
[2022-12-19] MEDS: CEFTRIAXONE 2GM VIAL IVPB SCH (14:27)
[2022-12-19] MEDS: DEXAMETHASONE SOD PHOSPHATE 4 MG/ML 1ML VIAL IV SCH (14:27)
[2022-12-20] VITALS (12 sets, daily range): BP systolic 122–136; BP diastolic 72–88; PULSE 71–100; RESP 14–24; O2SAT 95–99
[2022-12-20] MEDS: FUROSEMIDE 40MG VIAL IV SCH ×3 (03:39→23:46)
[2022-12-20] MEDS: HYDROCODONE/ACETAMINOPHEN 5/325 MG TAB PO PRN ×2 (03:58→19:34)
[2022-12-20 04:00] LABS: BASOPHILS # (AUTO) 0.01 K/uL (0.00-0.20); BASOPHILS % (AUTO) 0.1 % (0.0-5.0); HEMATOCRIT 28.3 % (42-54); IMMATURE GRANULOCYTE ABSOLUTE 0.18 K/uL (0-1); LYMPHOCYTES % (AUTO) 9.2 % (21.0-51.0); MEAN CORPUSCULAR HGB CONC 33.6 g/dL (32.0-36.0); MEAN CORPUSCULAR VOLUME 92.5 fL (79-99); MONOCYTES # (AUTO) 1.1 K/uL (0.1-1.0); NEUTROPHILS # (AUTO) 8.8 K/uL (1.8-7.7); NEUTROPHILS % (AUTO) 79.1 % (40.0-77.0); NUCLEATED RED BLOOD CELLS 0.2 % (0.0-0.19); PLATELET COUNT (AUTO) 413 K/uL (130-400); RED BLOOD CELL COUNT(AUTO) 3.06 MIL/uL (4.50-6.20); RED CELL DISTRIBUTION WIDTH 13.4 % (11.0-15.5); WHITE BLOOD COUNT (AUTO) 11.1 K/uL (4.8-10.8)
[2022-12-20 04:08] LABS: CREATININE 1.6 mg/dL (0.5-1.5); POTASSIUM 3.2 mmol/L (3.5-5.1)
[2022-12-20] MEDS: INSULIN HUMULIN R 100 UNIT/ML 3ML SQ SCH ×4 (05:25→19:35)
[2022-12-20] MEDS: KCL 20 MEQ ERTAB PO PRN ×4 (06:04→12:41)
[2022-12-20] MEDS: LEVOTHYROXINE 75 MCG TABLET PO SCH (06:04)
[2022-12-20] MEDS: METOCLOPRAMIDE 10 MG/2 ML VIAL IVP SCH ×3 (06:04→17:36)
[2022-12-20] MEDS: METRONIDAZOLE 500MG/100ML BAG 100 ML IVPB SCH ×3 (06:04→21:33)
[2022-12-20] MEDS: IPRATROPIUM 0.5 MG/2.5 ML INH IH SCH ×4 (06:35→23:34)
[2022-12-20] MEDS: DILTIAZEM 120MG SR CAP PO SCH (09:34)
[2022-12-20] MEDS: FLUCONAZOLE 100 MG TAB PO SCH (09:36)
[2022-12-20] MEDS: PANTOPRAZOLE 40 MG/VIAL IVP SCH (09:36)
[2022-12-20] MEDS: GABAPENTIN 100 MG CAPSULE PO SCH ×2 (09:37→21:33)
[2022-12-20] MEDS: CEFTRIAXONE 2GM VIAL IVPB SCH (14:28)
[2022-12-20] MEDS: DEXAMETHASONE SOD PHOSPHATE 4 MG/ML 1ML VIAL IV SCH (14:30)
[2022-12-20 22:56] LABS: MAGNESIUM 1.8 mg/dL (1.80-2.40); POTASSIUM 3.8 mmol/L (3.5-5.1)
[2022-12-20] MEDS: MAGNESIUM 2GM PREMIX 50ML 50 ML IV SCH (23:47)
[2022-12-20] MEDS: POTASSIUM CHLORIDE 10% ELIXIR 20 MEQ/15 ML UDCUP PO PRN (23:47)
[2022-12-21] VITALS (14 sets, daily range): BP systolic 114–147; BP diastolic 68–87; PULSE 72–99; RESP 18–20; O2SAT 95–97
[2022-12-21] MEDS: POTASSIUM CHLORIDE 10% ELIXIR 20 MEQ/15 ML UDCUP PO PRN (02:15)
[2022-12-21] MEDS: HYDROCODONE/ACETAMINOPHEN 5/325 MG TAB PO PRN ×2 (04:01→14:47)
[2022-12-21 04:08] LABS: BASOPHILS # (AUTO) 0.01 K/uL (0.00-0.20); BASOPHILS % (AUTO) 0.1 % (0.0-5.0); HEMATOCRIT 30.7 % (42-54); IMMATURE GRANULOCYTE ABSOLUTE 0.24 K/uL (0-1); LYMPHOCYTES # (AUTO) 0.8 K/uL (1.0-4.8); LYMPHOCYTES % (AUTO) 7.6 % (21.0-51.0); MEAN CORPUSCULAR HEMOGLOBIN 31.5 pg (27.0-33.0); MEAN CORPUSCULAR HGB CONC 33.6 g/dL (32.0-36.0); MEAN CORPUSCULAR VOLUME 93.9 fL (79-99); MONOCYTES # (AUTO) 0.8 K/uL (0.1-1.0); MONOCYTES % (AUTO) 7.2 % (3.0-13.0); NEUTROPHILS # (AUTO) 9.2 K/uL (1.8-7.7); NEUTROPHILS % (AUTO) 82.9 % (40.0-77.0); PLATELET COUNT (AUTO) 462 K/uL (130-400); RED BLOOD CELL COUNT(AUTO) 3.27 MIL/uL (4.50-6.20); RED CELL DISTRIBUTION WIDTH 13.2 % (11.0-15.5)
[2022-12-21 04:26] LABS: CREATININE 1.5 mg/dL (0.5-1.5); POTASSIUM 4.1 mmol/L (3.5-5.1)
[2022-12-21] MEDS: METOCLOPRAMIDE 10 MG/2 ML VIAL IVP SCH ×3 (06:24→15:46)
[2022-12-21] MEDS: LEVOTHYROXINE 75 MCG TABLET PO SCH (06:24)
[2022-12-21] MEDS: INSULIN HUMULIN R 100 UNIT/ML 3ML SQ SCH ×4 (06:25→20:54)
[2022-12-21] MEDS: METRONIDAZOLE 500MG/100ML BAG 100 ML IVPB SCH (06:25)
[2022-12-21] MEDS: IPRATROPIUM 0.5 MG/2.5 ML INH IH SCH ×4 (06:33→23:06)
[2022-12-21] MEDS: DILTIAZEM 120MG SR CAP PO SCH (08:19)
[2022-12-21] MEDS: PANTOPRAZOLE 40 MG/VIAL IVP SCH (08:19)
[2022-12-21] MEDS: GABAPENTIN 100 MG CAPSULE PO SCH ×2 (08:20→20:53)
[2022-12-21] MEDS: FLUCONAZOLE 100 MG TAB PO SCH (08:20)
[2022-12-21] MEDS: FUROSEMIDE 40MG VIAL IV SCH (11:53)
[2022-12-21] MEDS: CEFTRIAXONE 2GM VIAL IVPB SCH (14:49)
[2022-12-21] MEDS: METRONIDAZOLE 500 MG TABLET PO SCH ×2 (14:50→20:53)
[2022-12-21] MEDS: FUROSEMIDE 40 MG TABLET PO SCH (15:47)
[2022-12-22] VITALS (16 sets, daily range): BP systolic 114–148; BP diastolic 58–83; PULSE 72–106; RESP 14–20; O2SAT 95–97
[2022-12-22] MEDS: METRONIDAZOLE 500 MG TABLET PO SCH ×3 (05:22→21:44)
[2022-12-22 05:50] LABS: BASOPHILS # (AUTO) 0.04 K/uL (0.00-0.20); BASOPHILS % (AUTO) 0.2 % (0.0-5.0); EOSINOPHILS # (AUTO) 0.07 K/uL (0.00-0.70); EOSINOPHILS % (AUTO) 0.4 % (0.0-8.0); HEMATOCRIT 34.4 % (42-54); IMMATURE GRANULOCYTE ABSOLUTE 0.49 K/uL (0-1); LYMPHOCYTES # (AUTO) 3.3 K/uL (1.0-4.8); LYMPHOCYTES % (AUTO) 17.4 % (21.0-51.0); MEAN CORPUSCULAR HEMOGLOBIN 30.9 pg (27.0-33.0); MEAN CORPUSCULAR HGB CONC 32.3 g/dL (32.0-36.0); MEAN CORPUSCULAR VOLUME 95.8 fL (79-99); MONOCYTES # (AUTO) 1.6 K/uL (0.1-1.0); MONOCYTES % (AUTO) 8.5 % (3.0-13.0); NEUTROPHILS # (AUTO) 13.4 K/uL (1.8-7.7); NEUTROPHILS % (AUTO) 70.9 % (40.0-77.0); NUCLEATED RED BLOOD CELLS 0.1 % (0.0-0.19); PLATELET COUNT (AUTO) 598 K/uL (130-400); RED BLOOD CELL COUNT(AUTO) 3.59 MIL/uL (4.50-6.20); RED CELL DISTRIBUTION WIDTH 13.3 % (11.0-15.5); WHITE BLOOD COUNT (AUTO) 18.9 K/uL (4.8-10.8)
[2022-12-22] MEDS: INSULIN HUMULIN R 100 UNIT/ML 3ML SQ SCH ×4 (06:13→21:45)
[2022-12-22 06:21] LABS: CREATININE 1.5 mg/dL (0.5-1.5); POTASSIUM 3.4 mmol/L (3.5-5.1)
[2022-12-22] MEDS: LEVOTHYROXINE 75 MCG TABLET PO SCH (06:33)
[2022-12-22] MEDS: METOCLOPRAMIDE 10 MG/2 ML VIAL IVP SCH ×3 (06:33→16:55)
[2022-12-22] MEDS: KCL 20 MEQ ERTAB PO PRN ×2 (06:37→09:36)
[2022-12-22] MEDS: IPRATROPIUM 0.5 MG/2.5 ML INH IH SCH ×4 (06:38→22:57)
[2022-12-22] MEDS: GABAPENTIN 100 MG CAPSULE PO SCH ×2 (09:35→21:43)
[2022-12-22] MEDS: DILTIAZEM 120MG SR CAP PO SCH (09:35)
[2022-12-22] MEDS: FUROSEMIDE 40 MG TABLET PO SCH ×2 (09:35→16:55)
[2022-12-22] MEDS: PANTOPRAZOLE 40 MG/VIAL IVP SCH (09:35)
[2022-12-22] MEDS: FLUCONAZOLE 100 MG TAB PO SCH (09:35)
[2022-12-22] MEDS: DEXAMETHASONE 4 MG TAB PO SCH (09:35)
[2022-12-22] MEDS: CEFTRIAXONE 2GM VIAL IVPB SCH (13:59)
[2022-12-22] MEDS: HYDROCODONE/ACETAMINOPHEN 5/325 MG TAB PO PRN (23:07)
[2022-12-23] VITALS (10 sets, daily range): BP systolic 131–149; BP diastolic 73–86; PULSE 76–104; RESP 16–20; O2SAT 94–96
[2022-12-23] MEDS: INSULIN HUMULIN R 100 UNIT/ML 3ML SQ SCH ×4 (05:43→20:22)
[2022-12-23] MEDS: LEVOTHYROXINE 75 MCG TABLET PO SCH (05:54)
[2022-12-23] MEDS: METRONIDAZOLE 500 MG TABLET PO SCH ×3 (05:54→20:21)
[2022-12-23] MEDS: METOCLOPRAMIDE 10 MG/2 ML VIAL IVP SCH ×3 (05:55→16:53)
[2022-12-23] MEDS: IPRATROPIUM 0.5 MG/2.5 ML INH IH SCH ×4 (06:46→23:24)
[2022-12-23] MEDS: FUROSEMIDE 40 MG TABLET PO SCH ×2 (10:18→16:52)
[2022-12-23] MEDS: FLUCONAZOLE 100 MG TAB PO SCH (10:18)
[2022-12-23] MEDS: PANTOPRAZOLE 40 MG/VIAL IVP SCH (10:19)
[2022-12-23] MEDS: DILTIAZEM 120MG SR CAP PO SCH (10:19)
[2022-12-23] MEDS: GABAPENTIN 100 MG CAPSULE PO SCH ×2 (10:19→20:21)
[2022-12-23] MEDS: DEXAMETHASONE 4 MG TAB PO SCH (10:19)
[2022-12-23] MEDS: CEFTRIAXONE 2GM VIAL IVPB SCH (14:28)
[2022-12-23] MEDS ORDERED: RIVAROXABAN 15 MG TABLET PO ONE (20:03)
[2022-12-23] MEDS: HYDROCODONE/ACETAMINOPHEN 5/325 MG TAB PO PRN (20:20)
[2022-12-24] VITALS (8 sets, daily range): BP systolic 119–142; BP diastolic 72–85; PULSE 75–112; RESP 18–20; O2SAT 94–97
[2022-12-24 05:40] LABS: HEMATOCRIT 33.3 % (42-54); MEAN CORPUSCULAR HEMOGLOBIN 31.2 pg (27.0-33.0); MEAN CORPUSCULAR VOLUME 94.3 fL (79-99); RED BLOOD CELL COUNT(AUTO) 3.53 MIL/uL (4.50-6.20); RED CELL DISTRIBUTION WIDTH 13.6 % (11.0-15.5); WHITE BLOOD COUNT (AUTO) 18.2 K/uL (4.8-10.8)
[2022-12-24] MEDS: INSULIN HUMULIN R 100 UNIT/ML 3ML SQ SCH ×2 (05:41→11:30)
[2022-12-24 05:57] LABS: CREATININE 1.3 mg/dL (0.5-1.5); POTASSIUM 3.6 mmol/L (3.5-5.1)
[2022-12-24] MEDS: METRONIDAZOLE 500 MG TABLET PO SCH ×2 (06:10→14:00)
[2022-12-24] MEDS: KCL 20 MEQ ERTAB PO PRN ×2 (06:11→09:06)
[2022-12-24] MEDS: METOCLOPRAMIDE 10 MG/2 ML VIAL IVP SCH ×2 (06:11→08:59)
[2022-12-24] MEDS ORDERED: LEVOTHYROXINE 75 MCG TABLET PO SCH (06:30)
[2022-12-24] MEDS: IPRATROPIUM 0.5 MG/2.5 ML INH IH SCH ×2 (06:41→11:15)
[2022-12-24] MEDS: PANTOPRAZOLE 40 MG/VIAL IVP SCH (08:59)
[2022-12-24] MEDS: FLUCONAZOLE 100 MG TAB PO SCH (09:00)
[2022-12-24] MEDS: DILTIAZEM 120MG SR CAP PO SCH (09:00)
[2022-12-24] MEDS: FUROSEMIDE 40 MG TABLET PO SCH (09:01)
[2022-12-24] MEDS: GABAPENTIN 100 MG CAPSULE PO SCH (09:01)
[2022-12-24] MEDS: DEXAMETHASONE 4 MG TAB PO SCH (09:02)
[2022-12-24] MEDS ORDERED: DEXA4 PO (13:56)
[2022-12-24] MEDS ORDERED: AMOX1TAB16 PO (13:56)
[2022-12-24] MEDS: CEFTRIAXONE 2GM VIAL IVPB SCH (14:00)
[2022-12-24] MEDS ORDERED: RIVAROXABAN 15 MG TABLET PO SCH (17:00)
== END 2022-12-24 15:30 | DRG 417 ==
LOC: EDH 22:28 → EDHIP 12-12 01:16 → 4BH 12-12 04:12 → 4CH 12-13 14:45 → 2DH 12-16 01:17 → 3AH 12-22 18:57
PROVIDERS: ADMIT Internal Medicine Critical Care Medicine; ATTEND Internal Medicine Critical Care Medicine
PROC: 0FT44ZZ Resection of Gallbladder, Percutaneous Endoscopic Approach (ICD-10-PCS; principal; 2022-12-14 10:57)
PROC: 30233N1 Transfusion of Nonautologous Red Blood Cells into Peripheral Vein, Percutaneous Approach (ICD-10-PCS; 2022-12-16)
PROC: 5A2204Z Restoration of Cardiac Rhythm, Single (ICD-10-PCS; 2022-12-21)
DX: K80.10 Calculus of gallbladder with chronic cholecystitis without obstruction (principal); I50.33 Acute on chronic diastolic (congestive) heart failure; U07.1 COVID-19; J12.82 Pneumonia due to coronavirus disease 2019; J96.01 Acute respiratory failure with hypoxia; J15.9 Unspecified bacterial pneumonia; D62 Acute posthemorrhagic anemia; E87.20 Acidosis, unspecified; K56.7 Ileus, unspecified; K91.89 Other postprocedural complications and disorders of digestive system; N17.9 Acute kidney failure, unspecified; I48.19 Other persistent atrial fibrillation; J98.11 Atelectasis; K82.A1 Gangrene of gallbladder in cholecystitis; E11.65 Type 2 diabetes mellitus with hyperglycemia; E03.9 Hypothyroidism, unspecified; E66.9 Obesity, unspecified; K76.0 Fatty (change of) liver, not elsewhere classified; I25.10 Atherosclerotic heart disease of native coronary artery without angina pectoris; E78.00 Pure hypercholesterolemia, unspecified; G89.29 Other chronic pain; I11.0 Hypertensive heart disease with heart failure; K82.8 Other specified diseases of gallbladder; Z68.38 Body mass index [BMI] 38.0-38.9, adult; Z79.01 Long term (current) use of anticoagulants; Z82.49 Family history of ischemic heart disease and other diseases of the circulatory system; Z95.5 Presence of coronary angioplasty implant and graft
CPT/HCPCS: 36415; 36430; 36600; 71045; 71250; 74018; 74176; 74177; 76705; 76770; 78226; 80048; 80053; 80061; 81001; 81003; 82150; 82306; 82435; 82803; 82947; 82948; 83605; 83690; 83735; 83880; 84100; 84132; 84145; 84295; 84484; 85014; 85018; 85025; 85027; 85610; 85730; 86140; 86850; 86900; 86901; 86923; 87324; 87635; 87804; 88304; 93005; 93306; 94640; 94660; 94664; A9537; C1894; C9113; G0378; J0330; J0690; J0696; J1100; J1170; J1630; J1650; J1815; J1885; J1940; J2001; J2250; J2270; J2405; J2543; J2704; J2765; J3010; J3475; J3480; J3490; J7030; J8540; P9016; Q9963; Q9967; A4216; A4222; A4223; A4452; A4510; A4600; A4649; A4930; A6206; C1750; C1769; J0665

== ENCOUNTER → 2023-04-17 | Outpatient (CLI) | payer OTHER ==
[~2023-04-17] MED LIST changes: +AMOX1TAB16 PO; +DEXA4 PO
== END | disposition home or self-care (01) ==
LOC: RAH 12:45
PROVIDERS: ATTEND Internal Medicine Cardiovascular Disease
DX: I35.0 Nonrheumatic aortic (valve) stenosis (principal); I49.1 Atrial premature depolarization
CPT/HCPCS: 93306

== ENCOUNTER 2024-11-20 20:47 | Emergency (ER) | payer OTHER, MEDICAID ==
[~2024-11-20] VITALS: Ht 167.6 cm; Wt 120.2 kg
[~2024-11-20 20:47] MED LIST changes: -AMOX1TAB16 PO; -DEXA4 PO; -FAMO20TA8 PO; +FERR324T4 PO; -GABA100C PO; +HYDR-4060 PO; -IBUP-1493 PO; -LISI20TA24 PO; +MEMA7CAP PO; -OMEP40CA21 PO; -ONDA-104 PO; +PANT20TA18 PO; -PANT40TA PO
--- NOTE | 2024-11-20 20:59 | NUR ---
PATIENT TRANSPORTED TO CT
[2024-11-20] MEDS ORDERED: IOHEXOL 350 MG/ML 100ML INFUS..BTL IV ONE (21:00)
--- NOTE | 2024-11-20 21:04 | ERN ---
ED Note History of Present Illness Stated Complaint: BACK AND NECK PAIN S/P FALL,-LOC, +ANTICOAGULANTS Chief Complaint: Trauma Activation Time Seen by MD: 20:54 Time Seen by Midlevel: 20:54 Dictation: Mr. Bennett is a 79-year-old male with history of CAD/stent, hypertension, hypothyroidism, type 2 diabetes, anemia, osteoarthritis, lumbar spine surgery, obstructive sleep apnea, and vertigo who was transported via EMS to the emergency department this evening for evaluation after a fall. It was reported that 1 hour ago he was walking outside (without his walker or cane) when he became dizzy, stumbled and fell onto his back; striking head. There was no report of loss of consciousness. Patient does take Xarelto.. He was found by neighbors supine on sidewalk. They somehow brought him into his home and placed him on the couch. His called 911. She states that he does drink alcohol at times but she does not believing he was doing so this evening. There was no report of recent illness, fever, chills, shortness of breath, cough, chest pain, palpitations, edema, abdominal pain, nausea, vomiting, hematemesis, constipation, diarrhea, melena, hematochezia, dysuria, headache, or focal weakness/paresthesia Trauma Level II was activated. Primary assessment was completed (see below) and patient taken to Radiology for CT head/neck/chest/abdomen/pelvis. Allergies: Coded Allergies: No Known Drug Allergies (Unverified Allergy, Unknown, 12/03/22) Home Meds Active Scripts Ferrous Sulfate (Ferrous Sulfate) 324 Mg (65 Mg Iron) Tablet.dr, 1 TAB PO DAILY for 30 Days, #30 TAB 0 Refills Prov:JULIO BOSS MD 07/02/24 Hydrocodone/Acetaminophen (Hydrocodon-Acetaminophen 5-325) 5 Mg-325 Mg Tablet, 1-2 EACH PO Q8H PRN for Acute postop pain (G89.18) for 7 Days, #42 TAB 0 Refills Prov:JULIO BOSS MD 07/02/24 Reported Medications Memantine HCl (Namenda Xr) 7 Mg Cap.spr.24, 7 MG PO DAILY, CAP 06/26/24 Pantoprazole Sodium (Pantoprazole Sodium) 20 Mg Tablet.dr, 20 MG PO DAILY, TAB 06/26/24 Hydrochlorothiazide (Hydrochlorothiazide) 25 Mg Tablet, 25 MG PO DAILY 12/04/22 Atorvastatin Calcium (Atorvastatin Calcium) 40 Mg Tablet, 40 MG PO HS 12/04/22 Levothyroxine Sodium (Levothroid/Synthroid) 75 Mcg Tab, 75 MCG PO ACBKFST 12/04/22 Rivaroxaban (Xarelto) 20 Mg Tablet, 20 MG PO DAILY 12/04/22 Diltiazem HCl (Dilt-Xr) 120 Mg Cap.er.deg, 120 MG PO DAILY 12/04/22 Past Medical History Past Medical History: Anemia, Diabetes-Type II, Gallstones, Hyperthyroid, Other (Chronic anticoagulation on Xarelto, obstructive sleep apnea) Surgical History: Unknown (Left knee, lumbar spine) PSYCH History: no pertinent psych hx Family History: HTN Social History: Negative, Lives with family (Lives with ) RN Note Reviewed/Agreed w/PFSH: Yes Review of System Dictation REVIEW OF SYSTEMS: CONSTITUTIONAL: Patient denies fevers, chills, sweats and weight changes. Reports fatigue EYES: Patient denies any visual symptoms. EARS, NOSE, AND THROAT: No difficulties with hearing. No symptoms of rhinitis or sore throat. CARDIOVASCULAR: Patient denies chest pains, palpitations, orthopnea and paroxysmal nocturnal dyspnea. RESPIRATORY: No dyspnea on exertion, no wheezing or cough. Reported right rib pain. GI: No nausea, vomiting, diarrhea, constipation, abdominal pain, hematochezia or melena. : No urinary hesitancy or dribbling. No nocturia or urinary frequency. No abnormal urethral discharge. MUSCULOSKELETAL: Reports pain to bilateral arms and posterior neck. NEUROLOGIC: No chronic headaches, no seizures. Patient denies numbness, tingling or weakness. Reported dizziness prior to fall. PSYCHIATRIC: Patient denies problems with mood disturbance. No problems with anxiety. ENDOCRINE: No excessive urination or excessive thirst. DERMATOLOGIC: Patient denies any rashes or skin changes. Initial Vital Sign VS Vital Signs Date Time Temp Pulse Resp B/P (MAP) Pulse Ox O2 Delivery O2 Flow Rate FiO2 11/20/24 20:49 97.9 80 16 147/67 96 Room Air 0 11/20/24 20:50 21 Physical Exam Dictation Vital signs: Reviewed. Afebrile. Constitutional: Moderate distress. He is poor historian and states that his is in charge of all his medical care. Airway: patent. Rigid c-collar is in place. Able to speak full sentences clearly. Breathing: He has equal breath sounds bilaterally with no accessory muscle use. Room air SpO2 is 97%. There was no significant chest wall deformity or crepitus. He does have tenderness upon palpation of right lateral ribs. Circulation: Pulses present bilateral radial, carotid. Skin is normal color, warm, and dry. Capillary refills less than 3 seconds. There was no external hemorrhage. BP 147/67 Disability/neuro. GCS 15. Pupils are equal, round, reactive to light. He is able to move all extremities but painful. No focal neuro deficits. Exposure: Patient fully exposed for exam. Warm Blankets applied to prevent hypothermia. Head/face/scalp: no lacerations, step-offs, hematomas or deformities. No hemotympanum, raccoon eyes, or lee signs. Mid face is stable. No dental trauma. He is able to open and close mouth easily. Eyes/ears/nose/throat: Shows equal/reactive. EOMI. No hyphema. No nasal septal hematoma or rhinorrhea. Oropharynx is clear. Neck: C-collar remains in place. While maintaining in-line manual stabilization palpated the back of the neck there is midline tenderness. There are no step-offs, swelling. There is no tracheal deviation. No JVD. Carotid p ulses 2+ Chest: Symmetrical expansion. No crepitus or deformities. No flail segment. Lung sounds clear bilaterally. There is tenderness upon palpation right lateral ribs. Chest x-ray was obtained. No obvious rib factors noted. Cardiac: Regular rate and rhythm. Peripheral pulses 2+ bilaterally. Back: With the assist of ED staff x4 patient was log-rolled with C-spine precau tions. No step-offs, deformities, or laceration. Thoracic and lumbar spine nontender. Noted lumbar spine surgical scar. Abdomen: Soft, nondistended, obese. Bowel sounds heard all quadrants. No rebound, guarding, or palpable masses. No ecchymosis or peritoneal signs Pelvis/: Pelvis is stable to gentle compression. No perineal bruising or hematoma. No blood at meatus. Extremities: No obvious deformities, or lacerations. He is able to move all extremities. Distal pulses intact. Cap refill less than 3 seconds. Motor and sensation intact in all extremities. He has tenderness upon even light palpation to left forearm/humerus/shoulder/wrist, and hand. He has tenderness to light palpation to the right hand. Neurologic: GCS 15. Oriented x3. No focal motor or sensory deficits Skin: Warm/dr No abrasions, lacerations, contusions, or smith. Results (Laboratory/Radiology) Laboratory/Radiology Laboratory Tests Test 11/20/24 20:59 11/20/24 22:04 White Blood Count 8.0 K/uL (4.8-10.8) Red Blood Count 3.90 MIL/uL (4.50-6.20) L Hemoglobin 10.1 g/dL (14.0-18.0) L Hematocrit 32.2 % (42-54) L Mean Corpuscular Volume 82.6 fL (79-99) Mean Corpuscular Hemoglobin 25.9 pg (27.0-33.0) L Mean Corpuscular Hemoglobin Concent 31.4 g/dL (32.0-36.0) L Red Cell Distribution Width 16.3 % (11.0-15.5) H Platelet Count 311 K/uL (130-400) Mean Platelet Volume 9.6 fL (7.5-10.5) Immature Granulocyte % (Auto) 0.3 % (0-1) Neutrophils (%) (Auto) 54.7 % (40.0-77.0) Lymphocytes (%) (Auto) 33.0 % (21.0-51.0) Monocytes (%) (Auto) 9.3 % (3.0-13.0) Eosinophils (%) (Auto) 1.9 % (0.0-8.0) Basophils (%) (Auto) 0.8 % (0.0-5.0) Neutrophils # (Auto) 4.4 K/uL (1.8-7.7) Lymphocytes # (Auto) 2.6 K/uL (1.0-4.8) Monocytes # (Auto) 0.7 K/uL (0.1-1.0) Eosinophils # (Auto) 0.15 K/uL (0.00-0.70) Basophils # (Auto) 0.06 K/uL (0.00-0.20) Absolute Immature Granulocyte (auto 0.02 K/uL (0-1) Nucleated Red Blood Cells 0.0 % (0.0-0.19) Prothrombin Time 13.0 SEC (9.6-11.6) H Prothromb Time International Ratio 1.25 (0.85-1.15) H Activated Partial Thromboplast Time 36.4 SEC (26.3-35.5) H Sodium Level 133 mmol/L (136-145) L Potassium Level 4.0 mmol/L (3.5-5.1) Chloride Level 100 mmol/L (101-111) L Carbon Dioxide Level 19 mmol/L (21-32) L Blood Urea Nitrogen 12 mg/dL (7-18) Creatinine 1.5 mg/dL (0.5-1.3) H Glomerular Filtration Rate Calc 47 mL/min (>90) Random Glucose 118 mg/dL (70-105) H Total Calcium 8.7 mg/dL (8.5-10.1) Total Bilirubin 0.5 mg/dL (0.2-1.0) Direct Bilirubin 0.1 mg/dL (0.0-0.3) Aspartate Amino Transf (AST/SGOT) 16 U/L (10-37) Alanine Aminotransferase (ALT/SGPT) 15 U/L (12-78) Alkaline Phosphatase 135 U/L (50-136) Troponin I High Sensitivity 5 ng/L (4-75) Total Protein 7.7 g/dL (6.0-8.3) Albumin 4.4 g/dL (3.5-5.0) Urine Color COLORLESS (YELLOW) Urine Appearance CLEAR (CLEAR) Urine pH 5.5 (5.0-8.0) Urine Specific Welch 1.015 (1.001-1.031) Urine Protein NEGATIVE mg/dL (NEGATIVE) Urine Glucose (UA) NEGATIVE mg/dL (NEGATIVE) Urine Ketones NEGATIVE mg/dL (NEGATIVE) Urine Occult Blood NEGATIVE (NEGATIVE) Urine Nitrate NEGATIVE (NEGATIVE) Urine Bilirubin NEGATIVE mg/dL (NEGATIVE) Urine Urobilinogen 0.2 mg/dL (0.2-1.0) Urine Leukocyte Esterase NEGATIVE Kirti/uL Labs Reviewed?: Yes ED Course ED Course Orders Procedure Category Date Status Time 12 Lead Ekg Tracing- EKG 11/20/24 Logged Technical 20:52 Cbc With Differential LAB 11/20/24 Complete 20:52 Basic Metabolic Panel LAB 11/20/24 Complete 20:52 Pt And Ptt LAB 11/20/24 Complete 20:52 Chest 1vw RAD 11/20/24 Resulted 20:52 Ct Head/Brain W/O CT 11/20/24 Resulted Contrast 20:52 Ct Cervical Spine W/O CT 11/20/24 Resulted Contrast 20:52 12 Lead Ekg Tracing- EKG 11/20/24 Logged Technical 20:52 Hepatic Function Panel LAB 11/20/24 Complete 20:52 Urinalysis Profile LAB 11/20/24 Complete 20:52 Troponin I High LAB 11/20/24 Complete Sensitivity 20:52 Hydromorphone 0.5mg PHA 11/20/24 Complete Syg (Dilaudid 0.5mg 21:00 Ct Chest/Abd/Pelv CT 11/20/24 Resulted W/Conrast 21:00 Type And Screen BBK 11/20/24 Complete 21:06 Nurse Driven Epps ELSA 11/20/24 In Process Removal Pro 21:49 Forearm 2vws Rt RAD 11/20/24 Resulted 21:55 Wrist 2vws Rt RAD 11/20/24 Resulted 21:55 Hand 3+Vws Rt RAD 11/20/24 Resulted 21:55 Shoulder Comp 2+Vws Lt RAD 11/20/24 Resulted 21:55 Humerus 2+Vws Lt RAD 11/20/24 Resulted 21:55 Forearm 2vws Lt RAD 11/20/24 Resulted 21:55 Wrist 2vws Lt RAD 11/20/24 Resulted 21:55 Hand 3+Vws Lt RAD 11/20/24 Resulted 21:55 Alcohol, Blood LAB 11/20/24 Logged 21:55 Lactated Ringers PHA 11/20/24 Complete 1000ml (Lactated 23:20 Ambulate Patient (Er) CPOE 11/20/24 Transmitted 23:53 Current Medications Medications (Trade) Dose Ordered Sig/Mahamed Route PRN Reason Start Time Stop Time Status Last Admin Dose Admin Hydromorphone HCl (DiLAUDid 0.5MG INJ) 0.2 mg ONCE ONCE IVP 11/20/24 21:00 11/20/24 21:01 DC 11/20/24 21:49 Lactated Ringer's (Lactated Ringers 1000ml) 1,000 ml BOLUS STAT IV 11/20/24 23:20 11/20/24 23:25 DC 11/20/24 23:33 Vital Signs Date Time Temp Pulse Resp B/P (MAP) Pulse Ox O2 Delivery O2 Flow Rate FiO2 11/20/24 20:50 97.9 81 20 133/80 99 Room Air* 0 21 11/20/24 20:49 97.9 80 16 147/67 96 Room Air 0 Medical Decision Making MDM Patient was given a bradley scan because he was on a blood thinner and had neck pain. The results of the scan were negative for fractures or dislocations. Patient's head CT scan was also negative. And CT scan of patient's abdomen and pelvis was also negative. CT scan of the patient's chest shows some central lobular and subpleural nodules with tree-in-bud pattern scattered in the bilateral upper lobes right middle lobe and bilateral lower lobes concerning for an active infection with endobronchial spread; however, patient's white blood cell count is normal he is afebrile and he has no pulmonary symptoms. Patient's chemistry panel shows hyponatremia to 133 hypochloremia to 100 a CO2 of 19 a creatinine of 1.5. The creatinine of 1.5 is baseline for him. The patient was able to ambulate with a walker. Patient has significant neck pain but he has no evidence of fractures or soft tissue swelling in the CT scan of his neck. We removed the C-collar and he was able to flex and extend his neck a little bit and also turn his head the left and right a little bit with no increase in numbness or tingling in any of his extremities. The C-collar was removed and he was placed in a soft collar. DX & DISP Disposition: Discharge Departure Impression: Primary Impression: Ground-level fall Condition: Stable Additional Instructions: You suffered a fall and currently I experiencing neck pain. The CT scan showed that you have no fractures or dislocations in your neck. We have placed you in a soft collar for comfort. You can take Tylenol or ibuprofen for pain control. Also you can ice your neck or use a warm compress as well for better pain control and muscle relaxation. You do have a lot of pain in all extremities of your body but there are no fractures anywhere. The CT scan of your chest shows possible infectious Disease spreading but your white count is normal and your breathing is normal and your oxygenation is normal. I strongly recommend you follow-up with her primary care physician and get referred to a processing mgr who can evaluate your chest CT scan results and discuss what to do next. This point I would not know which antibiotics to prescribe. Referrals: ASHWIN SILVA MD (PCP) ALISON BLANCO NP Nov 20, 2024 21:04 KARI MARCELO MD Nov 21, 2024 00:35
[2024-11-20 21:06] LABS: IMMATURE GRANULOCYTE ABSOLUTE 0.02 K/uL (0-1); NUCLEATED RED BLOOD CELLS 0.0 % (0.0-0.19); PLATELET COUNT (AUTO) 311 K/uL (130-400); RED BLOOD CELL COUNT(AUTO) 3.90 MIL/uL (4.50-6.20); RED CELL DISTRIBUTION WIDTH 16.3 % (11.0-15.5); WHITE BLOOD COUNT (AUTO) 8.0 K/uL (4.8-10.8)
[2024-11-20 21:15] LABS: CREATININE 1.5 mg/dL (0.5-1.3); GLOMERULAR FILTR. RATE CALC 47.0 mL/min (>90); GLUCOSE,RANDOM 118.0 mg/dL (70-105); SODIUM SERUM 133.0 mmol/L (136-145); UREA NITROGEN, BLOOD 12.0 mg/dL (7-18)
[2024-11-20 21:16] LABS: INR 1.25 (0.85-1.15)
[2024-11-20 21:25] LABS: ASPARTATE AMINOTRANSFERASE 16.0 U/L (10-37); TOTAL PROTEIN, SERUM 7.7 g/dL (6.0-8.3)
--- NOTE | 2024-11-20 22:17 | HMCIMG ---
EXAMINATION: CT Cervical Spine without intravenous contrast. CLINICAL HISTORY: Fall. TECHNIQUE: Axial CT of the cervical spine without intravenous contrast. Sagittal and coronal reformations were generated and reviewed. COMPARISON: None provided. FINDINGS: ALIGNMENT: Straightening of the cervical spine, which may be secondary to paraspinal muscle spasm. DEGENERATIVE CHANGES: Multilevel mild spondylotic changes with multilevel marginal osteophytes, facet arthropathy, and uncovertebral hypertrophy. Diffuse disc bulge with bilateral overlapping uncovertebral osteophytes at C4-C5, C5-C6, and C6-C7 levels indent the anterior subarachnoid space and result in bilateral mild neural foraminal narrowing. Intervertebral disc calcification is present at the C2-C3 intervertebral disc space. SOFT TISSUES: The prevertebral soft tissues are within normal limits. BONES: No acute fracture or aggressive osseous lesion. IMPRESSION: No acute cervical spine fracture or dislocation. Multilevel mild cervical spondylosis with disc bulges and bilateral mild neural foraminal narrowing at C4-C5, C5-C6, and C6-C7. Straightening of the cervical spine, possibly due to paraspinal muscle spasm. /[place]
--- NOTE | 2024-11-20 22:19 | HMCIMG ---
EXAMINATION: CT Head without intravenous contrast. CLINICAL HISTORY: Fall. TECHNIQUE: Axial CT of the head without intravenous contrast. Multiplanar reformations were generated and reviewed. COMPARISON: MRI brain dated January 02, 2008. FINDINGS: BRAIN: No acute hemorrhage, mass lesion, or acute territorial infarct. Ventricular hypodensities are concerning for chronic microangiopathic ischemic changes. Mild diffuse cerebral atrophy is present with prominent cortical sulci, basal cisterns, and bilateral sylvian fissures. No midline shift or extra-axial collections. VENTRICLES: No hydrocephalus. ORBITS: The orbits are unremarkable. SINUSES AND MASTOIDS: The paranasal sinuses and mastoid air cells are clear. BONES: No fracture. SOFT TISSUES: Unremarkable. IMPRESSION: No acute intracranial abnormality. Chronic microangiopathic ischemic changes. Mild diffuse cerebral atrophy. /[place]
--- NOTE | 2024-11-20 22:25 | HMCIMG ---
EXAMINATION: CT Chest, Abdomen, and Pelvis with intravenous contrast. CLINICAL HISTORY: Trauma. TECHNIQUE: Axial CT of the chest, abdomen, and pelvis with intravenous contrast. Multiplanar reformations were generated and reviewed. CONTRAST: Omnipaque [id number]. COMPARISON: Compared to the prior CT abdomen and pelvis dated December 12, 2022. FINDINGS: CHEST: LUNGS: Subsegmental atelectasis and a few fibrotic strands in the right middle lobe and right lower lobe. A few centrilobular and subpleural nodules with tree-in-bud pattern scattered in the bilateral upper lobes, right middle lobe, and bilateral lower lobes, concerning for active infection with endobronchial spread. No pulmonary mass. PLEURAL SPACES: No pneumothorax. No pleural effusions. HEART: No cardiomegaly. No significant pericardial effusion. LYMPH NODES: No lymphadenopathy. ABDOMEN AND PELVIS: LIVER: Unremarkable. GALLBLADDER AND BILE DUCTS: The gallbladder is surgically absent. No biliary ductal dilatation. PANCREAS: Unremarkable. SPLEEN: Unremarkable. ADRENAL GLANDS: Unremarkable. KIDNEYS, URETERS, AND BLADDER: Bilateral minimal nonspecific perinephric fat stranding. No hydronephrosis or nephrolithiasis. No ureteral or bladder calculi. STOMACH AND BOWEL: Unremarkable. No bowel obstruction. No enteritis or colitis. APPENDIX: No CT features of acute appendicitis. PERITONEUM: No free fluid. No free air. REPRODUCTIVE: Unremarkable. VASCULATURE: Atheromatous calcifications in the aorta. No abdominal aortic aneurysm. BONES: Multilevel mild degenerative changes of the spine. Postsurgical changes in the lower lumbar spine. No acute osseous abnormality. IMPRESSION: No acute traumatic injury in the thorax, abdomen, or pelvis. A few centrilobular and subpleural nodules with tree-in-bud pattern scattered in the bilateral upper lobes, right middle lobe, and bilateral lower lobes, concerning for active infection with endobronchial spread. Subsegmental atelectasis and fibrotic strands in the right middle and lower lobes. Bilateral minimal nonspecific perinephric fat stranding. The gallbladder is surgically absent. /[place]
[2024-11-20 22:33] LABS: APPEARANCE,URINE CLEAR (CLEAR); GLUCOSE, URINE (UA) NEGATIVE (NEGATIVE); LEUKOCYTE ESTERASE ,URINE NEGATIVE Leu/uL (NEGATIVE); NITRATE,URINE NEGATIVE (NEGATIVE); OCCULT BLOOD,URINE NEGATIVE (NEGATIVE)
[2024-11-20 22:34] LABS: ADD UA MICROSCOPIC NO
--- NOTE | 2024-11-20 22:38 | HMCIMG ---
EXAM: CR Chest, single view. CLINICAL HISTORY: Fall. COMPARISON: Prior chest radiograph dated December 21, 2022. FINDINGS: The lungs show no infiltrate or other acute findings. No pleural effusion or pneumothorax. The cardiomediastinal silhouette is within normal limits. Atherosclerotic calcification of the aortic arch. No acute osseous abnormality. Mild degenerative changes in the mid and lower thoracic spine. IMPRESSION: No acute cardiopulmonary pathology is evident. No acute osseous abnormality. Compared to the prior study, there is an interval reduction in cardiomegaly and resolution of the bilateral pleural effusion and subsegmental atelectasis. /[place]
[2024-11-20] MEDS: LACTATED RINGERS 1000ML IV STA (23:33)
--- NOTE | 2024-11-20 23:43 | HMCIMG ---
EXAM: CR Left Forearm, 2 View. CLINICAL HISTORY: fall COMPARISON: None provided. FINDINGS: BONES: No acute fracture or aggressive appearing osseous lesion. JOINTS: No dislocation. The joint spaces are normal. SOFT TISSUES: The soft tissues are unremarkable. Atherosclerotic vascular calcifications are noted. IMPRESSION: 1. No acute osseous injury. /[place]
--- NOTE | 2024-11-20 23:44 | HMCIMG ---
EXAM: CR left Wrist, 2 View. CLINICAL HISTORY: fall COMPARISON: None provided. FINDINGS: BONES: No acute osseous abnormality. No acute fracture. JOINTS: No dislocation. The carpal bones demonstrate normal alignment. SOFT TISSUES: Soft tissue edema at the lateral aspect of the wrist. IMPRESSION: No acute osseous abnormality. No acute fracture or dislocation. /[place]
--- NOTE | 2024-11-20 23:46 | HMCIMG ---
EXAM: CR left shoulder, 2 View. CLINICAL HISTORY: fall COMPARISON: None provided. FINDINGS: Mild acromioclavicular and glenohumeral joint osteoarthritis. Small subacromial spur may result in rotator cuff tendon impingement. There is no displaced fracture or evidence of periostitis. There is no abnormality within the visualized chest. IMPRESSION: 1. No acute fracture or dislocation. 2. Mild osteoarthritic changes and small subacromial spur, possible rotator cuff tendon impingement. /[place]
--- NOTE | 2024-11-20 23:47 | HMCIMG ---
EXAM: CR Left Hand, 3 View. CLINICAL HISTORY: fall COMPARISON: None provided. FINDINGS: BONES: No acute fracture or aggressive appearing osseous lesion. JOINTS: No evidence of dislocation. The joint spaces are normal. SOFT TISSUES: The soft tissues appear within normal limits. No radiopaque foreign body is seen. IMPRESSION: No acute pathology evident. No acute fracture or dislocation. /[place]
--- NOTE | 2024-11-20 23:50 | HMCIMG ---
EXAM: CR right Wrist, 2 View. CLINICAL HISTORY: fall COMPARISON: None provided. FINDINGS: BONES: No acute osseous abnormality. No acute fracture. JOINTS: No dislocation. The carpal bones demonstrate normal alignment. SOFT TISSUES: The soft tissues are unremarkable. IMPRESSION: No acute osseous abnormality. No acute fracture or dislocation. /[place]
--- NOTE | 2024-11-20 23:51 | HMCIMG ---
EXAM: CR left humerus, 2 View. CLINICAL HISTORY: fall COMPARISON: None provided. FINDINGS: BONES: No acute fracture or aggressive appearing osseous lesion. JOINTS: No dislocation. The joint spaces are normal. SOFT TISSUES: The soft tissues are unremarkable. IMPRESSION: No acute osseous abnormality. /[place]
--- NOTE | 2024-11-20 23:51 | HMCIMG ---
EXAM: CR right Forearm, 2 View. CLINICAL HISTORY: fall COMPARISON: None provided. FINDINGS: BONES: No acute fracture or aggressive appearing osseous lesion. JOINTS: No dislocation. The joint spaces are normal. SOFT TISSUES: The soft tissues are unremarkable. Atherosclerotic vascular calcifications noted. IMPRESSION: No acute osseous abnormality. /[place]
--- NOTE | 2024-11-20 23:53 | HMCIMG ---
EXAM: CR right Hand, 3 View. CLINICAL HISTORY: fall COMPARISON: None provided. FINDINGS: BONES: No acute osseous pathology evident. JOINTS: No evidence of dislocation. The joint spaces are normal. SOFT TISSUES: The soft tissues appear within normal limits. No radiopaque foreign body is seen. IMPRESSION: No acute pathology evident. No acute fracture or dislocation. /[place]
--- NOTE | 2024-11-21 00:08 | NUR ---
PATIENT ABLE TO AMBULATE WITH WALKER WITHOUT COMPLICATIONS, WALK TRIAL SUCCESSFUL. DENIED DIZZINESS OR DISCOMFORT WITH AMBULATION
[2024-11-21 00:50] VITALS: BP 139/63; PULSE 75; RESP 16; TEMP 98; O2SAT 98
== END 2024-11-21 00:50 | disposition home or self-care (01) ==
LOC: EDH 20:47
DX: R07.81 Pleurodynia (principal); R42 Dizziness and giddiness; M79.602 Pain in left arm; M79.601 Pain in right arm; M54.2 Cervicalgia; E11.9 Type 2 diabetes mellitus without complications; E03.9 Hypothyroidism, unspecified; Z79.01 Long term (current) use of anticoagulants; Z79.899 Other long term (current) drug therapy; Z90.49 Acquired absence of other specified parts of digestive tract
CPT/HCPCS: 36415; 70450; 71045; 71260; 72125; 73030; 73060; 73090; 73100; 73130; 74177; 80048; 80076; 81003; 84484; 85025; 85610; 85730; 86850; 86900; 86901; 96374; 99285; J1171; J7120; Q9967